=== PATIENT | female | born 1945 | race Two or more races ===

== ENCOUNTER 2017-12-20 07:23 | Outpatient (CLI) | payer OTHER ==
[~2017-12-20 07:23] MED LIST: ADULT ASPIRIN81 MG; ARAVA10 MG; EXFORGE HCT 101 EAC1; ORPH100T PO; TRAMADOL HCL-AP1 TAB PO
== END 2017-12-20 15:02 | disposition home or self-care (01) ==
LOC: SONOGRAMA 07:23 → MAMO-SONO 08:15 → SONOGRAMA 15:02
DX: K57.30 Diverticulosis of large intestine without perforation or abscess without bleeding (principal); K30 Functional dyspepsia; R10.13 Epigastric pain; Z86.010 Personal history of colon polyps

== ENCOUNTER 2018-06-07 09:26 | Outpatient (CLI) | payer OTHER | END 2018-06-07 09:28 | disposition home or self-care (01) | LOC: MAMO-SONO 09:26 | DX: Z12.31 Encounter for screening mammogram for malignant neoplasm of breast (principal); Z87.898 Personal history of other specified conditions; N95.1 Menopausal and female climacteric states; N64.4 Mastodynia; N94.5 Secondary dysmenorrhea; Z78.9 Other specified health status; R10.2 Pelvic and perineal pain ==

== ENCOUNTER 2018-07-31 15:26 | Outpatient (CLI) | payer OTHER | END 2018-07-31 15:28 | disposition home or self-care (01) | LOC: RAD 15:26 | DX: M79.605 Pain in left leg (principal) ==

== ENCOUNTER 2018-10-02 09:21 | Outpatient (CLI) | payer OTHER | END 2018-10-02 13:02 | disposition home or self-care (01) | LOC: LAB 09:21 | DX: R39.15 Urgency of urination (principal); I10 Essential (primary) hypertension; Z11.3 Encounter for screening for infections with a predominantly sexual mode of transmission; Z12.11 Encounter for screening for malignant neoplasm of colon ==

== ENCOUNTER 2018-10-02 09:45 | Outpatient (CLI) | payer OTHER ==
[~2018-10-02 09:45] MED LIST changes: +ASPIR 8181 MG; +AVAPRO150 MG; +KETO10TA2 PO; +NORFLEX100MG PO; +NORVASC10 MG
== END 2018-10-02 09:59 | disposition home or self-care (01) ==
LOC: MAMO-SONO 09:45 → EDSEX 09:45 → MAMO-SONO 09:59
DX: K30 Functional dyspepsia (principal); R14.3 Flatulence; R14.1 Gas pain

== ENCOUNTER 2019-06-04 21:50 | Emergency (ER) | payer OTHER ==
[~2019-06-04] VITALS: Ht 157.5 cm; Wt 81.6 kg
[2019-06-04] MEDS ORDERED: TOPROL XL25 M1 (22:13)
[2019-06-04] MEDS ORDERED: XARELTO20 MG (22:13)
== END 2019-06-05 02:21 | disposition home or self-care (01) ==
LOC: ER 21:50
DX: R31.0 Gross hematuria (principal); R30.0 Dysuria; I48.91 Unspecified atrial fibrillation

== ENCOUNTER 2019-08-27 11:08 | Emergency (ER) | payer OTHER ==
[~2019-08-27] VITALS: Ht 157.5 cm; Wt 79.4 kg
[~2019-08-27 11:08] MED LIST changes: +TOPROL XL25 M1; +XARELTO20 MG
[2019-08-27] MEDS ORDERED: XIGDUO XR 5 MG1 EACH PO (12:30)
== END 2019-08-27 14:32 | disposition home or self-care (01) ==
LOC: ER 11:08
DX: S20.222A Contusion of left back wall of thorax, initial encounter (principal); M54.89 Other dorsalgia; W18.09XA Striking against other object with subsequent fall, initial encounter; Y93.89 Activity, other specified; Y92.013 Bedroom of single-family (private) house as the place of occurrence of the external cause; Y99.8 Other external cause status

== ENCOUNTER 2019-11-30 10:18 | Outpatient (CLI) | payer OTHER ==
[~2019-11-30 10:18] MED LIST changes: +XIGDUO XR 5 MG1 EACH PO
== END 2019-11-30 13:52 | disposition home or self-care (01) ==
LOC: EDSEX 10:18 → NUCLEAR 10:18
PROVIDERS: ATTEND Internal Medicine
DX: I73.9 Peripheral vascular disease, unspecified (principal)

== ENCOUNTER 2019-11-30 10:56 | Outpatient (CLI) | payer OTHER | END 2019-11-30 10:58 | disposition home or self-care (01) | LOC: MAMO-SONO 10:56 → EDSEX 10:56 → MAMO-SONO 10:58 | DX: Z12.31 Encounter for screening mammogram for malignant neoplasm of breast (principal); Z87.898 Personal history of other specified conditions; N60.21 Fibroadenosis of right breast; N60.22 Fibroadenosis of left breast ==

== ENCOUNTER 2021-04-01 08:46 | Outpatient (CLI) | payer OTHER | END 2021-04-01 08:52 | disposition home or self-care (01) | LOC: RX STUDY 08:46 | PROVIDERS: ATTEND Internal Medicine Gastroenterology | DX: K21.9 Gastro-esophageal reflux disease without esophagitis (principal); Z86.010 Personal history of colon polyps; K76.0 Fatty (change of) liver, not elsewhere classified; K30 Functional dyspepsia; K57.30 Diverticulosis of large intestine without perforation or abscess without bleeding; K59.01 Slow transit constipation; K63.5 Polyp of colon; R14.1 Gas pain; R14.3 Flatulence ==

== ENCOUNTER → 2021-04-29 08:46 | Outpatient (CLI) | payer OTHER | END | disposition home or self-care (01) | LOC: LAB 08:00 | PROVIDERS: ATTEND General Practice | DX: K85.80 Other acute pancreatitis without necrosis or infection (principal) ==

== ENCOUNTER 2021-04-29 16:07 | Outpatient (CLI) | payer OTHER | END 2021-04-29 17:00 | disposition home or self-care (01) | LOC: MAMO-SONO 16:07 | PROVIDERS: ATTEND General Practice | DX: R92.1 Mammographic calcification found on diagnostic imaging of breast (principal); Z12.31 Encounter for screening mammogram for malignant neoplasm of breast; R10.84 Generalized abdominal pain; K81.0 Acute cholecystitis ==

== ENCOUNTER 2022-04-01 10:44 | Outpatient (CLI) | payer OTHER | END 2022-04-01 11:55 | disposition home or self-care (01) | LOC: TOM 10:44 | PROVIDERS: ATTEND General Practice | DX: R42 Dizziness and giddiness (principal) ==

== ENCOUNTER 2022-07-20 12:19 | Outpatient (CLI) | payer OTHER | END 2022-07-20 12:39 | disposition home or self-care (01) | LOC: MAMO-SONO 12:19 | DX: Z12.31 Encounter for screening mammogram for malignant neoplasm of breast (principal); N60.21 Fibroadenosis of right breast; N60.22 Fibroadenosis of left breast ==

== ENCOUNTER 2022-10-12 07:30 | Outpatient (CLI) | payer OTHER | END 2022-10-12 07:35 | disposition home or self-care (01) | LOC: TOM 07:30 | DX: S13.4XXA Sprain of ligaments of cervical spine, initial encounter (principal) ==

== ENCOUNTER 2023-05-16 09:58 | Outpatient (CLI) | payer OTHER | END 2023-05-16 10:01 | disposition home or self-care (01) | LOC: MAMO-SONO 09:58 | PROVIDERS: ATTEND Student in an Organized Health Care Education/Training Program | DX: C50.919 Malignant neoplasm of unspecified site of unspecified female breast (principal); Z12.31 Encounter for screening mammogram for malignant neoplasm of breast ==

== ENCOUNTER 2024-02-13 09:28 | Emergency (ER) | payer OTHER ==
[~2024-02-13] VITALS: Ht 157.5 cm; Wt 77.1 kg
[2024-02-13] MEDS ORDERED: BETAPACE80 MG (09:40)
[2024-02-13] MEDS ORDERED: TRULICITY0.75 MG/0. (09:40)
[2024-02-13] MEDS ORDERED: PLAVIX75 MG (09:41)
[2024-02-13] MEDS ORDERED: ADULT LOW DOSE81 M1 (09:41)
[2024-02-13] MEDS ORDERED: GUAIFENESIN/DEXTROMETHORPHAN 5ML BLIST.PACK PO ONE (10:15)
[2024-02-13] MEDS ORDERED: GUAIFENESIN/DEXTROMETHORPHAN 10ML BLIST.PACK PO ONE (10:48)
[2024-02-13 11:54] LABS: HEMATOCRIT 41.7 % (36.0-45.00); HEMOGLOBIN 14.5 g/dL (12.0-15.00); MEAN CELL VOLUME 94.1 fL (80.00-100.00); MEAN CORPUSCULAR HEMOGLOBIN 32.6 pg (27.00-32.0); MEAN CORPUSCULAR HGB CONC 34.7 g/dl (32.0-36.0); PLATELET COUNT 162 K/uL (150-450); RED BLOOD COUNT 4.44 M/uL (4.00-6.00); RED CELL DISTRIBUTION WIDTH 13.7 % (11.5-14.5)
[2024-02-13 12:24] LABS: INR 1.09; PARTIAL THROMBOPLASTIN TIME 26.9 SECONDS (22.0-34.0); PROTHROMBIN TIME 11.4 SECONDS (9.0-11.5)
[2024-02-13 12:31] LABS: ALBUMIN 3.8 gm/dL (3.4-5.0); BILIRUBIN TOTAL 0.93 mg/dL (0.3-1.2); CALCIUM 10.3 mg/dL (8.5-10.1); CREATININE SERUM 0.76 mg/dL (0.55-1.02); GFR 73.99; GLOBULINA 4.6 G/DL (2.4-3.5); POTASSIUM 3.83 mEq/L (3.5-5.1); TOTAL PROTEIN 8.4 gm/dL (6.4-8.2)
[2024-02-13] MEDS ORDERED: BENZONATATE200 M1 PO (12:47)
[2024-02-13 12:48] LABS: PH,URINE 5.5 (5.0-8.0); URINE APPEARANCE Clear; URINE BILIRRUBIN Negative (NEGATIVE); URINE BLOOD Negative; URINE COLOR Yellow; URINE GLUCOSE Negative (NEGATIVE); URINE KETONE Negative (NEGATIVE); URINE LEUKOCYTE Negative; URINE NITRATE Negative; URINE PROTEIN Negative (NEGATIVE); URINE UROBILINOGEN 0.2 E.U./dl
[2024-02-13 12:52] LABS: URINE EPITHELIAL CELLS 2.7 uL (0.0-38.8); URINE RBC 9.4 uL (0.0-20.8); URINE WBC 2.4 uL (0.0-23.2)
== END 2024-02-13 13:08 | disposition home or self-care (01) ==
LOC: ER 09:29
PROVIDERS: General Practice
DX: U07.1 COVID-19 (principal); R53.81 Other malaise; R05.9 Cough, unspecified; I10 Essential (primary) hypertension; E11.9 Type 2 diabetes mellitus without complications; Z79.84 Long term (current) use of oral hypoglycemic drugs; Z91.013 Allergy to seafood; Z91.041 Radiographic dye allergy status

== ENCOUNTER 2024-06-20 13:26 | Outpatient (CLI) | payer OTHER ==
[~2024-06-20 13:26] MED LIST changes: +ADULT LOW DOSE81 M1; +BENZONATATE200 M1 PO; +BETAPACE80 MG; +PLAVIX75 MG; +TRULICITY0.75 MG/0.
== END 2024-06-20 13:32 | disposition home or self-care (01) ==
LOC: RAD 13:26
PROVIDERS: ATTEND General Practice
DX: R07.82 Intercostal pain (principal)

== ENCOUNTER 2024-06-30 08:45 | Emergency (ER) | payer OTHER ==
[~2024-06-30] VITALS: Ht 157.5 cm; Wt 80.7 kg
[2024-06-30] MEDS ORDERED: NIFE60TA3 (08:53)
[2024-06-30 08:54] VITALS: BP 115/72; O2SAT 99
[2024-06-30] MEDS ORDERED: KETOROLAC TROMETHAMINE 15 MG VIAL IM STA (09:32)
[2024-06-30] MEDS ORDERED: ACETAMINOPHEN 500 MG GEL..CAP PO STA (09:32)
[2024-06-30] MEDS ORDERED: KETOROLAC TROMETHAMINE 60 MG VIAL IM ONE (09:39)
[2024-06-30] MEDS ORDERED: ACETAMINOPHEN 500 MG GEL..CAP PO ONE (09:39)
[2024-06-30] MEDS ORDERED: ZITHROMAX500 MG PO (11:20)
== END 2024-06-30 11:34 | disposition home or self-care (01) ==
LOC: ER 08:47
DX: J32.9 Chronic sinusitis, unspecified (principal); R51.9 Headache, unspecified; I10 Essential (primary) hypertension; Z91.013 Allergy to seafood; Z91.041 Radiographic dye allergy status
CPT/HCPCS: 70220; 96372; 99283; J1885